=== PATIENT | female | born 1935 | race Caucasian/White ===

== ENCOUNTER 2021-01-19 15:12 | Observation (INO) ==
[2021-01-19 15:39] LABS: Hematocrit 48.1 % (37.0-47.0); Hemoglobin 14.9 gm/dL (12.5-16.0); Mean Platelet Volume 10.2 fl (8-12.5); Neutrophil # 10.2 K/mm3 (1.3-6.0); Neutrophil % 75.4 % (42-75.0); Platelet Count 269 K/mm3 (150-450); Red Blood Count 4.81 M/mm3 (4.2-5.4); Red Cell Distribution Width 15.1 % (11.5-14.0); White Blood Count 13.5 K/mm3 (4.0-10.5)
[2021-01-19 16:04] LABS: Albumin * 4.1 gm/dl (3.4-5.0); BUN/Creatinine Ratio 22.5 (9.0-21.6); Bilirubin, Total 1.1 mg/dL (0.0-1.1); Ca. Corrected For Albumin 8.9 mg/dL (8.4-10.2); Calcium * 9.3 mg/dL (7.9-10.9); Carbon Dioxide 18.2 mmol/L (24-32.6); Total Protein 8.6 gm/dL (6.2-8.2)
[2021-01-19] MEDS: AMPICILLIN SODIUM/SULBACTAM NA 1.5 GM in NORMAL SALINE 100 ML IV SCH ×2 (16:04→22:18)
[2021-01-19 16:24] LABS: Anion Gap 18.5 mmol/L (6.8-13.8)
[2021-01-19 16:28] LABS: Potassium 4.7 mmol/L (3.4-4.6)
--- NOTE | 2021-01-19 16:40 | ERNOTE ---
Medical Problem HPI - Narrative Date of Service: 01/19/21 - General Chief Complaint: Foreign Body Time Seen by Provider: 01/19/21 15:24 Source: patient Exam Limitations: no limitations - Immun/Allergies/Home Medications Immunizations: IMMUNIZATION HX Immunizations Up to Date Yes History of Influenza Vaccine Yes Hx Pneumococcal Vaccination No Allergies/Adverse Reactions: Allergies Sulfa (Sulfonamide Antibiotics) Allergy (Mild, Verified 11/20/20 10:34) Hives Home Medications: HOME MEDICATIONS acetaminophen 500 mg capsule 1,000 mg PO Q6H PRN cap 02/07/18 [Last Taken Unknown] clobetasol 0.05 % topical cream 1 applic TP BID 02/07/18 [Last Taken Unknown] folic acid 1 mg tablet 1 mg PO DAILY 04/02/20 [Last Taken Unknown] aspirin 81 mg tablet,delayed release 81 mg PO DAILY 08/21/20 [Last Taken Unknown] simvastatin 20 mg tablet 20 mg PO DAILY #30 tab 09/12/20 [Last Taken Unknown] leucovorin calcium 5 mg tablet 5 mg PO QWEEK #4 tab 10/03/20 [Last Taken Unknown] methotrexate sodium 2.5 mg tablet 12.5 mg PO QWEEK #20 tab 10/03/20 [Last Taken Unknown] conjugated estrogens 0.625 mg/gram vaginal cream 0.625 mg VG DAILY PRN 11/20/20 [Last Taken Unknown] potassium chloride 10 mEq tablet,extended release 20 meq PO DAILY #180 tab 11/28/20 [Last Taken Unknown] prednisone 2.5 mg tablet 2.5 mg PO DAILY PRN #30 tab 12/12/20 [Last Taken Unknown] - History of Present History Narrative: Patient is a 85-year-old female presented to emergency room [facility] accompanied by her daughter who is power of contracts attorney present with chief complaint of having difficulty breathing and cough started actually about 45 minutes prior to arrival. Patient past medical history significant for hypertension controlled severe rheumatoid arthritis, GERD and couple episodes of aspiration but never been admitted to the hospital for aspiration pneumonia. Patient denies any fever, chills, the main concern for the patient is difficulty breathing and having lots of phlegm. Patient does not have any feeling of nausea and vomiting patient's daughter is at bedside moderately anxious and patient and trying to be helpful. She is a nurse in the hospital. I personally talk to the patient and patient's power of contracts attorney regarding severity of the case as it can be tracheal or right main bronchi aspiration with foreign body. stabilized patient with having IV access and doing initial blood work. We started patient on Unasyn for possible aspiration pneumonia. We spent 27 minutes critical care initially with the patient. I personally looked at the images and the did the expression is patient x-rays thanks to our thermal technician we got the images and asked radiologist to be dosed rest. Radiologist could not appreciate any atelectasis at this moment and normal aeration bilaterally patient has significant sized hiatal hernia which definitely got worse with episodes of coughs and recent difficulty breathing. Patient and patient's daughter also report that she may have had aspirations previously as well. Review of Systems - Narrative Narrative: Documented in HPI. Medical History (Last Reviewed 01/19/21 @ 15:26 by Nirali Merrill RN) COVID-19 vaccine administered (Acute) Hip pain, left (Chronic) Onset Date: Unknown Low back pain (Chronic) Atrophic vaginitis Cystocele, midline GERD (gastroesophageal reflux disease) Hyperlipidemia Hypertension Meniere disease Myocarditis Osteoarthritis Rectocele Sciatic nerve disease Uterovaginal prolapse, incomplete Surgical History: Surgical History (Last Reviewed 01/19/21 @ 15:26 by Nirali Merrill RN) Cataract delivery delivered Encounter for screening colonoscopy 2006 dr espinoza was normal Female cystocele H/O cystoscopy H/O exploratory laparotomy History of ear surgery History of tonsillectomy Presence of pessary Rectocele Vulvar adhesions Family History: Family History (Last Reviewed 01/19/21 @ 15:26 by Nirali Merrill RN) Father , colonscopy Cancer Mother Heart disease Social History: (Last Reviewed 01/19/21 @ 15:26 by Nirali Merrill RN) Social History: Marital status: / lives independently: Yes household members: none number of children: 4 current occupational status: retired Highest level of school completed/degree received: high school graduate Service: No Tobacco: Smoking Status: Never smoker Alcohol: alcohol intake: never Substance Use: substance use type: does not use Dietary Habits: caffeine: No Exercise: Physical activity type: none How many days of moderate to strenuous exercise, like a brisk walk, did you do in the last 7 days: 0 Physical Exam - Physical Exam General Appearance: Present: alert, severe distress, anxious Head Exam: Present: normal inspection, no evidence of injury Eye Exam: Normal inspection: bilateral, PERRL: bilateral, EOMI: bilateral Ears, Nose, Throat: Present: normal ENT inspection, other - Could not see any foreign body in oropharynx and nasopharynx I did not use any laryngoscopy due to minimize cough. Neck: Present: normal inspection, nontender Respiratory: Present: no accessory muscle use, chest nontender, respiratory distress, accessory muscle use, crackles, rhonchi, stridor. Absent: no respiratory distress, normal breath sounds, lungs clear, chest tenderness, decreased breath sounds, expiration (prolonged), rales, wheezing, pleural rub Cardiovascular/Chest: Present: no murmur, normal peripheral pulses, tachycardia Peripheral Pulses: N=norm/S=strong/W=weak/B=bound/A=absent: Carotid (R): Normal, Carotid (L): Normal, Dorsalis-pedis (R): Normal, Dorsalis-pedis (L): Normal Gastrointestinal/Abdominal: Present: normal bowel sounds, nontender, nondistended, soft, no organomegaly Rectal Exam: Present: nontender, normal rectal tone Extremity Exam: Present: normal inspection, non-tender, normal range of motion, no edema Neurological Exam: Present: alert, oriented, no motor/sensory deficits. Absent: normal mood/affect Skin Exam: Present: cyanosis - Patient was cyanotic initially on the right after initial management patient was normal Lymphatic Exam: Present: no adenopathy Progress - Date and Time Seen: Date and Time: 01/19/21 16:37 27 minutes critical care for the patient patient has stabilized got antibiotic positioning has been done we had the patient stand up and drink caffeinated soda but this patient did not have any difficulty swallowing no nausea no vomiting no phlegm or thick secretions coming up. Patient is talking continuously without having any cough patient clears her throat continuously patient does not have any chest pain or chest tightness or difficulty swallowing and pain. For now patient will be n.p.o. till 7 PM and needs to be seen by hospitalist and then needs to get clearance to start p.o. 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 Departure Clinical Impression: Aspiration pneumonia due to food (regurgitated) - Departure Disposition: Still a patient Condition: Stable Referrals: Giovanny Frank MD [Primary Care Provider] -
[2021-01-19 18:23] LABS: Urine Appearance Slightly Cloudy (CLEAR); Urine Bilirubin Negative (NEGATIVE); Urine Blood 25 /ul (NEGATIVE); Urine Color Yellow; Urine Ketone Negative (NEGATIVE); Urine Nitrite Negative (NEGATIVE); Urine Protein 100 mg/dL (NEGATIVE); Urine Urobilinogen Normal (NORMAL)
[2021-01-19 18:24] LABS: Urine Bacteria 2+; Urine Hyaline Cast 0-5 /LPF; Urine RBC 0-5 /hpf (0-5)
[2021-01-19] MEDS ORDERED: ACETAMINOPHEN 500 MG TABLET PO PRN ×2 (21:07→21:26)
[2021-01-19] MEDS ORDERED: guaiFENesin/DEXTROMETHORPHAN SYRUP PO PRN (21:08)
[2021-01-19] MEDS ORDERED: ESTROGENS, CONJUGATED 30 APPL TUBE VG PRN (21:09)
[2021-01-19] MEDS ORDERED: predniSONE 2.5 MG TABLET PO PRN (21:09)
[2021-01-19] MEDS ORDERED: ALBUTEROL SULFATE 2.5 MG/3 ML VIAL.NEB IH PRN (21:13)
--- NOTE | 2021-01-19 21:29 | HP ---
Chief Complaint - Chief Complaint Date of Service: 01/19/21 Time of Service: 21:19 Chief Complaint: I had shortness of breath and cough that got worse today while eating. History of Present Illness: 85-year-old female with past medical history of rheumatoid arthritis, osteoarthritis, GERD, hypertension, hyperlipidemia, and Mnire's disease was brought to the ER this evening for evaluation of parents choking spell accompanied by shortness of breath while the patient attending a birthday green party this evening. Patient reports for over 2 weeks she has had a dry cough that has been persistent and sometimes present in fits, she reports sometimes coughing so much that she becomes short of breath. Her daughter has become increasingly concerned and decided to Take her to the ER this afternoon when the patient attempted to eat small pieces of chicken and started coughing suddenly. The fear was that the patient aspirated some of the food. She denies any fever chills or any accompanying symptoms. The patient saw her primary care doctor for her upper respiratory symptoms and was prescribed antitussives and other symptomatic medications and was sent home, however her condition has not improved. Since arriving to the ER the patient has undergone 2 chest CTs which were negative for any focal consolidations or infiltrates and only significant for pleuritic scarring and calcification in the apices of the lungs, the rest of the imaging was unremarkable for any acute findings. Currently the patient is resting comfortably and has stopped coughing, she is saturating adequately and denies any symptoms at the moment. She maintained stable vitals and appears to be at her baseline. Physical exam was significant for crackles on her right lung base indicating the possibility that she aspirated. Labs revealed an elevated WBCs but the patient was not septic. Given the patient's past medical history and her age we will keep her overnight for observation and start diet in the morning, follow-up chest x-ray was ordered for tomorrow morning as well as labs for reevaluation of white count and electrolytes. Medical History (Last Reviewed 01/19/21 @ 15:26 by Nirali Merrill RN) COVID-19 vaccine administered (Acute) Hip pain, left (Chronic) Onset Date: Unknown Low back pain (Chronic) Atrophic vaginitis Cystocele, midline GERD (gastroesophageal reflux disease) Hyperlipidemia Hypertension Meniere disease Myocarditis Osteoarthritis Rectocele Sciatic nerve disease Uterovaginal prolapse, incomplete Surgical History: Surgical History (Last Reviewed 01/19/21 @ 15:26 by Nirali Merrill RN) Cataract delivery delivered Encounter for screening colonoscopy 2006 dr espinoza was normal Female cystocele H/O cystoscopy H/O exploratory laparotomy History of ear surgery History of tonsillectomy Presence of pessary Rectocele Vulvar adhesions Family History: Family History (Last Reviewed 01/19/21 @ 15:26 by Nirali Merrill RN) Father , colonscopy Cancer Mother Heart disease Social History: (Last Reviewed 01/19/21 @ 15:26 by Nirali Merrill RN) Social History: Marital status: / lives independently: Yes household members: none number of children: 4 current occupational status: retired Highest level of school completed/degree received: high school graduate Service: No Tobacco: Smoking Status: Never smoker Alcohol: alcohol intake: never Substance Use: substance use type: does not use Dietary Habits: caffeine: No Exercise: Physical activity type: none How many days of moderate to strenuous exercise, like a brisk walk, did you do in the last 7 days: 0 Peds Patient Hx - Developmental: No Pertinent Hx Peds Patient Hx - Medical: No Pertinent Hx Peds Patient Hx - Cardiac/Respiratory: No Pertinent Hx Peds Patient Hx - Surgical: No Surgical History Patient History - Cancer: No Hx of Cancer Review Of Systems (GEN) - Review of Systems Generalized/Overall Review: Present: No Symptoms Reported EENTM: Present: No Symptoms Reported Respiratory: Present: Cough, Shortness of Breath Cardiac: Present: No Symptoms Reported Abdominal: Present: No Symptoms Reported Genitourinary: Present: No Symptoms Reported Musculoskeletal: Present: No Symptoms Reported Neurological: Present: No Symptoms Reported Skin: Present: No Symptoms Reported Endocrine: Present: No Symptoms Reported Immunizations: IMMUNIZATION HX Immunizations Up to Date Yes History of Influenza Vaccine Yes Hx Pneumococcal Vaccination No Allergies/Adverse Reactions: Allergies Allergy/AdvReac Type Severity Reaction Status Date / Time Sulfa (Sulfonamide Allergy Mild Hives Verified 11/20/20 10:34 Antibiotics) Home Medications: HOME MEDICATIONS acetaminophen 500 mg capsule 1,000 mg PO Q6H PRN cap 02/07/18 [Last Taken Unknown] folic acid 1 mg tablet 1 mg PO DAILY 04/02/20 [Last Taken Unknown] aspirin 81 mg tablet,delayed release 81 mg PO DAILY 08/21/20 [Last Taken Unknown] simvastatin 20 mg tablet 20 mg PO DAILY #30 tab 09/12/20 [Last Taken Unknown] leucovorin calcium 5 mg tablet 5 mg PO QWEEK #4 tab 10/03/20 [Last Taken Unknown] methotrexate sodium 2.5 mg tablet 12.5 mg PO QWEEK #20 tab 10/03/20 [Last Taken Unknown] conjugated estrogens 0.625 mg/gram vaginal cream 0.625 mg VG DAILY PRN 11/20/20 [Last Taken Unknown] potassium chloride 10 mEq tablet,extended release 20 meq PO DAILY #180 tab 11/28/20 [Last Taken Unknown] prednisone 2.5 mg tablet 2.5 mg PO DAILY PRN #30 tab 12/12/20 [Last Taken Unknown] Exam - Exam Vital Signs: Vital Signs - Last Taken Temp 36.5 C 01/19/21 18:30 Pulse 98 01/19/21 18:30 Resp 16 01/19/21 18:30 BP 150/84 H 01/19/21 18:30 Pulse Ox 93 01/19/21 18:30 Constitutional: Present: Alert, Oriented x3, Cooperative, Well developed, Well nourished, No distress, Elderly ENT Exam: Present: normal ENT inspection, hearing grossly normal Eye Exam: bilateral eye: normal inspection, PERRL, EOMI Neck: Present: non-tender, full range of motion, supple, normal inspection, trachea midline Back Exam: Present: normal inspection, no CVA tenderness, no vertebral tenderness Breasts: Present: Exam deferred, Nontender Respiratory: Present: chest non-tender, normal breath sounds, no respiratory distress, no accessory muscle use, crackles - Crackles on right lung base Cardiovascular/Chest: Present: normal peripheral pulses, regular rate, rhythm, no chest tenderness, no edema, no gallop, no JVD, no murmur, no rub Peripheral Pulses: carotid (R): 2+, carotid (L): 2+ Abdomen: Present: Normal bowel sounds, soft, nontender, nondistended, no rebound tenderness, no hepatospenomegaly, no masses /Rectal: Present: Exam deferred Extremity: Present: normal range of motion, non-tender, normal inspection, no pedal edema, no calf tenderness, normal capillary refill, pelvis stable Skin Exam: Present: normal color, warm/dry, no cyanosis Lymphatic: Present: no adenopathy 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8 L (20-51) % Neutrophils # 10.2 H (1.3-6.0) K/mm3 Potassium 4.7 H (3.4-4.6) mmol/L Carbon Dioxide 18.2 L (24-32.6) mmol/L Anion Gap 18.5 H (6.8-13.8) mmol/L BUN/Creatinine Ratio 22.5 H (9.0-21.6) Random Glucose 126 H (70-110) mg/dL Total Protein 8.6 H (6.2-8.2) gm/dL Urine Protein 100 H (NEGATIVE) mg/dL Urine Blood 25 H (NEGATIVE) /ul Ur Leukocyte Esterase 100 H (NEGATIVE) /ul Urine WBC 10-25 H (0-5) /hpf Ur Epithelial Cells 5-10 H (0-5) /hpf Urine Bacteria 2+ H (NONE) Hyaline Casts 0-5 H (NONE) /LPF Laboratory Results WBC 13.5 K/mm3 (4.0-10.5) H 01/19/21 15:30 RBC 4.81 M/mm3 (4.2-5.4) 01/19/21 15:30 Hgb 14.9 gm/dL (12.5-16.0) 01/19/21 15:30 Hct 48.1 % (37.0-47.0) H 01/19/21 15:30 MCV 100.0 fl (78-100) 01/19/21 15:30 MCH 31.0 pg (27-31) 01/19/21 15:30 MCHC 31.0 g/dl (32-36) L 01/19/21 15:30 RDW 15.1 % (11.5-14.0) H 01/19/21 15:30 Plt Count 269 K/mm3 (150-450) 01/19/21 15:30 MPV 10.2 fl (8-12.5) 01/19/21 15:30 Immature Gran % (Auto) 0.40 % (0.001-0.429) 01/19/21 15:30 Immature Gran # (Auto) 0.05 K/mm3 (0.000-0.0310) H 01/19/21 15:30 Neutrophils % 75.4 % (42-75.0) H 01/19/21 15:30 Lymphocytes % 16.8 % (20-51) L 01/19/21 15:30 Monocytes % 6.0 % (0.0-9) 01/19/21 15:30 Eosinophils % 1.0 % (0.0-3.0) 01/19/21 15:30 Basophils % 0.4 % (0.0-1.0) 01/19/21 15: Nucleated RBC % 0.0 k/mm3 (0-1) 01/19/21 15:30 Neutrophils # 10.2 K/mm3 (1.3-6.0) H 01/19/21 15:30 Lymphocytes # 2.27 k/mm3 (1.5-3.5) 01/19/21 15:30 Monocytes # 0.8 k/mm3 (0.0-1.0) 01/19/21 15:30 Eosinophils # 0.1 k/mm3 (0.0-0.7) 01/19/21 15:30 Absolute Basophils 0.1 k/mm3 (0.0-0.1) 01/19/21 15:30 Sodium 137 mmol/L (132-142) 01/19/21 15:30 Plasma Sodium 137 mmol/L (130-142) 01/19/21 15:30 Potassium 4.7 mmol/L (3.4-4.6) H 01/19/21 15:30 Chloride 105 mmol/L (97-106) 01/19/21 15:30 Carbon Dioxide 18.2 mmol/L (24-32.6) L 01/19/21 15:30 Anion Gap 18.5 mmol/L (6.8-13.8) H 01/19/21 15:30 BUN 20 mg/dL (3-23) 01/19/21 15:30 Creatinine 0.89 mg/dL (0.4-1.4) 01/19/21 15:30 Est GFR (Non-Af Amer) 64 mL/min (60-130) D 01/19/21 15:30 BUN/Creatinine Ratio 22.5 (9.0-21.6) H 01/19/21 15:30 Random Glucose 126 mg/dL (70-110) H 01/19/21 15:30 Calcium 9.3 mg/dL (7.9-10.9) 01/19/21 15:30 Calcium Adj for Albumin 8.9 mg/dL (8.4-10.2) 01/19/21 15:30 Total Bilirubin 1.1 mg/dL (0.0-1.1) 01/19/21 15:30 AST 32 U/L (0-48) 01/19/21 15:30 ALT 22 U/L (19-67) 01/19/21 15:30 Alkaline Phosphatase 103 U/L (50-170) 01/19/21 15:30 Total Protein 8.6 gm/dL (6.2-8.2) H 01/19/21 15:30 Albumin 4.1 gm/dl (3.4-5.0) 01/19/21 15:30 Urine Color Yellow 01/19/21 18:10 Urine Appearance Slightly cloudy (CLEAR) 01/19/21 18:10 Urine pH 6.0 pH (5.0-7.0) 01/19/21 18:10 Ur Specific [place] 1.020 SP.GR. (1.005-1.010) 01/19/21 18:10 Urine Protein 100 mg/dL (NEGATIVE) H 01/19/21 18:10 Urine Glucose (UA) Negative mg/dL (NEGATIVE) 01/19/21 18:10 Urine Ketones Negative mg/dL (NEGATIVE) 01/19/21 18:10 Urine Blood 25 /ul (NEGATIVE) H 01/19/21 18:10 Urine Nitrate Negative (NEGATIVE) 01/19/21 18:10 Urine Bilirubin Negative mg/dl (NEGATIVE) 01/19/21 18:10 Urine Urobilinogen Normal EU/dl (NORMAL) 01/19/21 18:10 Ur Leukocyte Esterase 100 /ul (NEGATIVE) H 01/19/21 18:10 Urine RBC 0-5 /hpf (0-5) 01/19/21 18:10 Urine WBC 10-25 /hpf (0-5) H 01/19/21 18:10 Ur Epithelial Cells 5-10 /hpf (0-5) H 01/19/21 18:10 Urine Bacteria 2+ (NONE) H 01/19/21 18:10 Hyaline Casts 0-5 /LPF (NONE) H 01/19/21 18:10 Urine Culture Comments Culture to follow 01/19/21 18:10 SARS-CoV-2 (PCR) Not detected (NotDetected) 01/19/21 16:25 Assessment/Plan - Narrative Narrative: Patient was evaluated medical chart was reviewed and decision to admit for observation for aspiration pneumonia and upper respiratory infection was made. Patient was started on IV antibiotics which she is tolerating without issues. We will order symptomatic medications such as antitussives and breathing treatments to be used as needed. Follow-up chest x-rays have been ordered for tomorrow morning for reevaluation as well as labs. - Assessment/Plan (1) Rheumatoid arthritis Problem: Acute (2) Aspiration pneumonia due to food (regurgitated) Problem: Acute (3) Cough Problem: Chronic (4) GERD (gastroesophageal reflux disease) Problem: Resolved (5) Hypertension Problem: Chronic Qualifiers: (6) Hyperlipidemia Problem: Chronic Qualifiers: (7) URI (upper respiratory infection) Problem: Acute
[2021-01-20] MEDS: AMPICILLIN SODIUM/SULBACTAM NA 1.5 GM in NORMAL SALINE 100 ML IV SCH ×2 (04:05→10:34)
[2021-01-20 06:26] LABS: Hematocrit 40.6 % (37.0-47.0); Hemoglobin 12.7 gm/dL (12.5-16.0); Mean Corpuscular Hgb Conc 31.3 g/dl (32-36); Mean Platelet Volume 9.8 fl (8-12.5); Neutrophil # 6.7 K/mm3 (1.3-6.0); Neutrophil % 67.7 % (42-75.0); Platelet Count 263 K/mm3 (150-450); Red Cell Distribution Width 15.1 % (11.5-14.0); White Blood Count 9.9 K/mm3 (4.0-10.5)
[2021-01-20 06:39] LABS: Albumin * 3.2 gm/dl (3.4-5.0); Anion Gap 12.7 mmol/L (6.8-13.8); BUN/Creatinine Ratio 15.6 (9.0-21.6); Bilirubin, Total 1.1 mg/dL (0.0-1.1); Ca. Corrected For Albumin 8.9 mg/dL (8.4-10.2); Calcium * 8.6 mg/dL (7.9-10.9); Carbon Dioxide 25.2 mmol/L (24-32.6); Potassium 3.9 mmol/L (3.4-4.6); Total Protein 6.9 gm/dL (6.2-8.2)
[2021-01-20] MEDS ORDERED: PANTOPRAZOLE SODIUM 20 MG TABLET.DR PO SCH (07:00)
--- NOTE | 2021-01-20 08:34 | PN ---
Progess Note - Interim Date: 01/20/21 Time: 08:32 Narrative: 01/20/21 08:[address] eval/tx. Will give prednisone burst for RA flare up. Consider upping Mtx dose. Protonix already 20 mg PO BID.
[2021-01-20] MEDS ORDERED: LEUCOVORIN CALCIUM 5 MG PO SCH (09:00)
[2021-01-20] MEDS ORDERED: POTASSIUM CHLORIDE 20 MEQ TABLET.SA PO SCH (09:00)
[2021-01-20] MEDS ORDERED: ASPIRIN 81 MG TABLET.DR PO SCH (09:00)
[2021-01-20] MEDS ORDERED: FOLIC ACID 1 MG TABLET PO SCH (09:00)
[2021-01-20] MEDS ORDERED: predniSONE 10 MG TABLET PO SCH (09:00)
[2021-01-20] MEDS ORDERED: AMPICILLIN SODIUM/SULBACTAM NA 1.5 GM in NORMAL SALINE 100 ML IV SCH (10:00)
--- NOTE | 2021-01-20 10:30 | DS ---
(1) Hiatal hernia with GERD and esophagitis Problem: Acute (2) Cough Diagnosis(s): And choking Problem: Resolved (3) Aspiration pneumonitis Problem: Suspected (4) GERD (gastroesophageal reflux disease) Problem: Acute (5) Polyarthralgia Diagnosis(s): Rheumatoid flareup Problem: Chronic (6) Rheumatoid arthritis Problem: Chronic (7) Hypertension Problem: Chronic Qualifiers: (8) Hyperlipidemia Problem: Chronic Qualifiers: Date of Discharge:: 01/20/21 Hospital Course: Claudai Black is an 85-year-old female with past medical history of rheumatoid arthritis, osteoarthritis, GERD, hypertension, hyperlipidemia, and Mnire's disease was admitted on 01/19/2021 because of choking spell accompanied by shortness of breath while the patient was attending a [employer]. Patient reports for over 2 weeks she has had a dry cough that has been persistent and sometimes present in fits, she reports sometimes coughing so much that she becomes short of breath. Her daughter has become increasingly concerned and decided to take her to the ER this afternoon when the patient attempted to eat small pieces of chicken and started coughing suddenly. The fear was that the patient aspirated some of the food. She denies any fever chills or any accompanying symptoms. Upon arriving to the ER the patient has undergone 2 chest CXR's which were negative for any focal consolidations or infiltrates and only significant for pleuritic scarring and calcification in the apices of the lungs, the rest of the imaging was unremarkable for any acute findings. Currently the patient is resting comfortably and has stopped coughing, she is saturating adequately and denies any symptoms at the moment. She maintained stable vitals and appears to be at her baseline. Physical exam was significant for crackles on her right lung base indicating the possibility that she aspirated. Labs revealed an elevated WBCs but the patient was not s eptic. Given the patient's past medical history and her age she was kept overnight for observation. She was started on IV antibiotics overnight. She again had a third chest x-ray this morning which showed no acute cardiopulmonary findings except for moderate hiatal hernia. Her white blood cell count has gone back to normal. We got a speech therapy evaluation on and patient showed no evidence of aspiration. She was put back on regular diet. While her coughing and choking might be due to her moderate hiatal hernia with gastroesophageal reflux and esophagitis it can also be due to esophageal dysmotility from her rheumatoid arthritis especially since it is flaring up again. We can discharge patient today and either schedule her a modified barium swallow test or possible EGD with Dr. Ramires. We will give her a tapering prednisone burst for a flareup of her rheumatoid arthritis-10 mg for 2 days, 8 mg for 2 days, 6 mg for 2 days, 4 mg for 2 days and then back to her 2.5 mg on a as needed basis. We will increase her methotrexate to 15 mg q. weekly while awaiting rheumatology appointment. She is also on Protonix 20 mg p.o. twice daily. Follow-up with me in 2 weeks time. Procedures Performed: none Results and Findings: Pending Mircobiology Results 01/19/21 18:10 Urine,Clean Catch Urine Culture - Preliminary No Growth Lab Pending Results 01/19/21 15:30: WBC 13.5 H, RBC 4.81, Hgb 14.9, Hct 48.1 H, MCV 100.0, MCH 31.0, MCHC 31.0 L, RDW 15.1 H, Plt Count 269, MPV 10.2, Immature Gran % (Auto) 0.40, Immature Gran # (Auto) 0.05 H, Neutrophils % 75.4 H, Lymphocytes % 16.8 L, Monocytes % 6.0, Eosinophils % 1.0, Basophils % 0.4, Nucleated RBC % 0.0, Neutrophils # 10.2 H, Lymphocytes # 2.27, Monocytes # 0.8, Eosinophils # 0.1, Absolute Basophils 0.1 01/19/21 15:30: Sodium 137, Plasma Sodium 137, Potassium 4.7 H, Chloride 105, Carbon Dioxide 18.2 L, Anion Gap 18.5 H, BUN 20, Creatinine 0.89, Est GFR (Non- Af Amer) 64 D, BUN/Creatinine Ratio 22.5 H, Random Glucose 126 H, Calcium 9.3, Calcium Adj for Albumin 8.9, Total Bilirubin 1.1, AST 32, ALT 22, Alkaline Phosphatase 103, Total Protein 8.6 H, Albumin 4.1 01/19/21 16:25: SARS-CoV-2 (PCR) Not detected 01/19/21 18:10: Urine Color Yellow, Urine Appearance Slightly cloudy, Urine pH 6.0, Ur Specific [place] 1.020, Urine Protein 100 H, Urine Glucose (UA) Negative, Urine Ketones Negative, Urine Blood 25 H, Urine Nitrate Negative, Urine Bilirubin Negative, Urine Urobilinogen Normal, Ur Leukocyte Esterase 100 H, Urine RBC 0-5, Urine WBC 10-25 H, Ur Epithelial Cells 5-10 H, Urine Bacteria 2+ H, Hyaline Casts 0-5 H, Urine Culture Comments Culture to follow 01/20/21 06:15: WBC 9.9 D, RBC 4.10 L, Hgb 12.7, Hct 40.6, MCV 99.0, MCH 31.0, MCHC 31.3 L, RDW 15.1 H, Plt Count 263, MPV 9.8, Immature Gran % (Auto) 0.30, Immature Gran # (Auto) 0.03, Neutrophils % 67.7, Lymphocytes % 21.9, Monocytes % 8.4, Eosinophils % 1.4, Basophils % 0.3, Nucleated RBC % 0.0, Neutrophils # 6.7 H, Lymphocytes # 2.17, Monocytes # 0.8, Eosinophils # 0.1, Absolute Basophils 0.0 01/20/21 06:15: Sodium 141, Plasma Sodium 141, Potassium 3.9, Chloride 107 H, Carbon Dioxide 25.2, Anion Gap 12.7, BUN 14, Creatinine 0.90, Est GFR (Non-Af Amer) 63, BUN/Creatinine Ratio 15.6, Random Glucose 100, Calcium 8.6, Calcium Adj for Albumin 8.9, Total Bilirubin 1.1, AST 20, ALT 15 L, Alkaline Phosphatase 79, Total Protein 6.9, Albumin 3.2 L Discharge Location: Home Disposition: Home self-care Condition: Stable Discharge Activity: Activity as tolerated Discharge Diet: General/regular food Referrals: Giovanny Frank MD [Primary Care Provider] - Additional Patient Instructions (free text): Follow up with PCP in 2 weeks. Prescriptions (Any new or edited meds): Azithromycin 250 mg PO DAILY #6 tab Transmission Status: Received by [place], [place] Methotrexate Sodium [Methotrexate] 15 mg PO QWEEK #20 tab Transmission Status: Received by [place], [place] Pantoprazole Sodium [Protonix] 20 mg PO BID@0700,2100 #60 tablet.dr Transmission Status: Received by [facility] [place], [place] predniSONE [Jeremi] 2 mg PO DAILY #30 tablet.dr Krueger/DEXTROMETHORPHAN [Robitussin-Dm] 10 ml PO Q4H PRN #1 syrup PRN Reason: Cough Transmission Status: Received by [facility], [place], [place] Complete Home Medications List: Complete Home Medication List: acetaminophen 500 mg capsule 1,000 mg PO Q6H PRN cap 02/07/18 folic acid 1 mg tablet 1 mg PO DAILY 04/02/20 aspirin 81 mg tablet,delayed release 81 mg PO DAILY 08/21/20 simvastatin 20 mg tablet 20 mg PO DAILY #30 tab 09/12/20 leucovorin calcium 5 mg tablet 5 mg PO QWEEK #4 tab 10/03/20 conjugated estrogens 0.625 mg/gram vaginal cream 0.625 mg VG DAILY PRN 11/20/20 potassium chloride 10 mEq tablet,extended release 20 meq PO DAILY #180 tab 11/28/20 prednisone 2.5 mg tablet 2.5 mg PO DAILY PRN #30 tab 12/12/20 Azithromycin 250 mg PO DAILY #6 tab 01/20/21 Methotrexate Sodium [Methotrexate] 15 mg PO QWEEK #20 tab 01/20/21 Pantoprazole Sodium [Protonix] 20 mg PO BID@0700,2100 #60 tablet. 01/20/21 cesarFENesin/DEXTROMETHORPHAN [Robitussin-Dm] 10 ml PO Q4H PRN #1 syrup 01/20/21 predniSONE [Jeremi] 2 mg PO DAILY #30 tablet. 01/20/21 Amb Orders for Discharge: Esophagram Video Swallow Time Frame: 1 Week, Facility: [facility], Location: Radiology
[2021-01-20 13:51] VITALS: BP 146/87
[2021-01-20] MEDS ORDERED: SIMVASTATIN 20 MG TABLET PO SCH (21:00)
[2021-01-26] MEDS ORDERED: METHOTREXATE SODIUM 2.5 MG TABLET PO SCH (09:00)
== END 2021-01-20 14:15 | disposition home or self-care (01) ==
LOC: ER 15:12 → MS 17:49 → INTOOBSV 17:49 → MS 18:15
PROVIDERS: ADMIT Family Medicine; ATTEND Internal Medicine